=== PATIENT | female | born 1975 | race Caucasian/White ===

== ENCOUNTER 2019-03-22 23:37 | Emergency (ER) | payer OTHER ==
[~2019-03-22] VITALS: Ht 172.7 cm; Wt 102.1 kg
[2019-03-22 23:51] VITALS: BP 136/90
--- NOTE | 2019-03-22 23:53 | NUR ---
TO LOBBY A/W BED AMBULATORY
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
--- NOTE | 2019-03-23 00:48 | NUR ---
PT TAKEN TO BED 5
[2019-03-23] MEDS: KETOROLAC 60 MG/2 ML VIAL IM ONE (01:11)
--- NOTE | 2019-03-23 02:11 | NUR ---
ERMD AT BEDSIDE
[2019-03-23] MEDS: MORPHINE SULFATE 4 MG/ML SYR IM ONE (02:22)
--- NOTE | 2019-03-23 02:47 | NUR ---
Patient discharged with v/s stable. Written and verbal after care instructions given and explained. Patient alert, oriented and verbalized understanding of instructions. Pt encouraged to drink plenty of fluids and eat foods with fiber to prevent constipation. Ambulatory with steady gait. All questions addressed prior to discharge. ID band removed. Patient advised to follow up with PMD. Rx of norco was given. Patient educated on indication of medication including possible reaction and side effects. Opportunity to ask questions provided and answered.
[2019-03-23 02:49] VITALS: BP 136/90
== END 2019-03-23 02:47 | disposition home or self-care (01) ==
LOC: MED 23:37
DX: K08.89 Other specified disorders of teeth and supporting structures (principal)
CPT/HCPCS: 96372; 99283; J1885; J2270